=== PATIENT | male | born 1965 | race Caucasian/White ===

== ENCOUNTER → 2016-08-18 | Outpatient (CLI) | payer MEDICARE, OTHER ==
[~2016-08-18] MED LIST: ASPIR 8181 MG PO; COUMADIN10 MG PO; DIABETA 5 MG TAB5 MG PO; DILTIAZEM 24HR240 MG PO; GLUCOPHAGE 500500 MG PO; IMDUR ER TAB 3030 MG PO; KEPPRA500 MG PO; KLOR-CON 1010 MEQ PO; LASIX40 MG PO; LIPITOR TAB 2020 MG PO; LISINOPRIL2.5 MG PO; LOPRESSOR 25 MG25 MG PO; MONTELUKAST SOD10 MG PO; NEURONTIN 300300 MG PO; NORVASC 5 MG TAB5 MG PO; PLAVIX 75 MG TA75 MG PO; PRAMIPEXOLE D0.25 MG PO; SYMBICORT 16010.2 GM INH; ZYLOPRIM 100 M100 MG PO
== END ==
LOC: HEART 5 08-11 07:27
DX: I25.119 Atherosclerotic heart disease of native coronary artery with unspecified angina pectoris (principal); R06.02 Shortness of breath; R94.39 Abnormal result of other cardiovascular function study; Z48.812 Encounter for surgical aftercare following surgery on the circulatory system; Z86.73 Personal history of transient ischemic attack (TIA), and cerebral infarction without residual deficits
CPT/HCPCS: 78451; A9505

== ENCOUNTER 2016-08-22 07:06 | Inpatient (IN) | payer MEDICARE, SELFPAY ==
[~2016-08-22] VITALS: Ht 177.8 cm; Wt 108.9 kg
[~2016-08-22 07:06] MED LIST changes: -LIPITOR TAB 2020 MG PO; -LOPRESSOR 25 MG25 MG PO; -MONTELUKAST SOD10 MG PO; -NORVASC 5 MG TAB5 MG PO; -PLAVIX 75 MG TA75 MG PO
[2016-08-22 07:38] LABS: HEMOGLOBIN 15.2 gm/dl (14.0-17.5); RED BLOOD COUNT 4.95 M/UL (4.20-5.50); WHITE BLOOD COUNT 6.6 K/UL (4.5-11.0)
[2016-08-22 08:08] LABS: BUN/CREATININE RATIO 16 (0-10)
[2016-08-22 22:12] LABS: HEMOGLOBIN 14.2 gm/dl (14.0-17.5); RED BLOOD COUNT 4.6 M/UL (4.20-5.50); WHITE BLOOD COUNT 6.5 K/UL (4.5-11.0)
[2016-08-23 03:42] LABS: HEMOGLOBIN 14.6 gm/dl (14.0-17.5); RED BLOOD COUNT 4.76 M/UL (4.20-5.50); WHITE BLOOD COUNT 6.6 K/UL (4.5-11.0)
[2016-08-23 04:03] LABS: BUN/CREATININE RATIO 15 (0-10)
[2016-08-23] MEDS ORDERED: PLAVIX 75 MG TA75 MG PO (12:09)
[2017-01-08] MEDS ORDERED: LIPITOR TAB 2020 MG PO (10:23)
[2017-03-02] MEDS ORDERED: LOPRESSOR 25 MG25 MG PO (08:18)
[2017-03-02] MEDS ORDERED: NORVASC 5 MG TAB5 MG PO (08:48)
[2017-03-02] MEDS ORDERED: MONTELUKAST SOD10 MG PO (08:55)
== END 2016-08-23 11:40 | disposition home or self-care (01) | DRG 247 ==
LOC: CATH 07:06 → ZEROF 07:07 → CATH 08:00 → PROG CARE 18:00 → ZEROF 08-23 11:40 → CATH 08-23 12:54
PROVIDERS: ADMIT Internal Medicine
PROC: 4A023N7 Measurement of Cardiac Sampling and Pressure, Left Heart, Percutaneous Approach (ICD-10-PCS; principal; 2016-08-22)
PROC: 027037Z Dilation of Coronary Artery, One Artery with Four or More Drug-eluting Intraluminal Devices, Percutaneous Approach (ICD-10-PCS; 2016-08-22)
PROC: B2111ZZ Fluoroscopy of Multiple Coronary Arteries using Low Osmolar Contrast (ICD-10-PCS; 2016-08-22)
PROC: 3E0234Z Introduction of Serum, Toxoid and Vaccine into Muscle, Percutaneous Approach (ICD-10-PCS; 2016-08-23)
DX: I25.118 Atherosclerotic heart disease of native coronary artery with other forms of angina pectoris (principal); I10 Essential (primary) hypertension; G47.30 Sleep apnea, unspecified; G40.909 Epilepsy, unspecified, not intractable, without status epilepticus; E11.9 Type 2 diabetes mellitus without complications; I44.0 Atrioventricular block, first degree; Z23 Encounter for immunization; Z95.2 Presence of prosthetic heart valve; Z79.82 Long term (current) use of aspirin; Z79.01 Long term (current) use of anticoagulants; Z79.899 Other long term (current) drug therapy
CPT/HCPCS: 36415; 80048; 80074; 82550; 82553; 82962; 84484; 85025; 85027; 85347; 85610; 85730; 87390; 93005; 94640; 94664; C1725; C1769; C1874; C1887; C1894; C9600; G0008; J0461; J0583; J1644; J2250; J3010; J7030; J7040; J7120; Q2039; Q9963

== ENCOUNTER → 2016-09-12 | Outpatient (CLI) | payer MEDICARE ==
[~2016-09-12] MED LIST changes: +LIPITOR TAB 2020 MG PO; +LOPRESSOR 25 MG25 MG PO; +MONTELUKAST SOD10 MG PO; +NORVASC 5 MG TAB5 MG PO; +PLAVIX 75 MG TA75 MG PO
== END ==
LOC: CARD REHAB 09:26
DX: Z48.812 Encounter for surgical aftercare following surgery on the circulatory system (principal)

== ENCOUNTER → 2016-12-30 | Outpatient (CLI) | payer MEDICARE | LOC: HEART 5 08:30 | DX: R07.9 Chest pain, unspecified (principal); I35.9 Nonrheumatic aortic valve disorder, unspecified; I25.10 Atherosclerotic heart disease of native coronary artery without angina pectoris; I10 Essential (primary) hypertension; R94.39 Abnormal result of other cardiovascular function study | CPT/HCPCS: 78452; A9502 ==

== ENCOUNTER → 2020-08-15 | Outpatient (CLI) | payer MEDICARE, OTHER ==
[~2020-08-15] MED LIST changes: +ALDACTONE25 MG PO; +ATORVASTATIN CA40 MG PO; +BRILINTA90 MG PO; +COUMADIN7.5 MG PO; -DIABETA 5 MG TAB5 MG PO; +ECOTRIN81 MG PO; +GLUCOTROL XL 5 M5 MG PO; +GLUCOTROL10 MG PO; +ISOSORBIDE MONO60 MG PO; +JANTOVEN10 MG PO; +LAMICTAL100 MG PO; +LASIX80 MG PO; +METFORMIN HCL1000 MG PO; +METOPROLOL TART50 MG PO; +NEURONTIN600 MG PO; +NITROSTAT 0.40.4 MG SL; +POTASSIUM99 M1 PO; +PRINIVIL10 MG PO; +SOLARAZE100 GM TP; +SYMBICORT 80-10.2 GM INH; +TRICOR 145 MG145 MG PO; +VOLTAREN ARTHRI20 GM TD; +WARFARIN SODIUM5 MG PO; +ZESTRIL2.5 MG PO; +ZYLOPRIM 300 M300 MG PO
== END ==
LOC: LBRF 20:37
DX: M86.172 Other acute osteomyelitis, left ankle and foot (principal)
CPT/HCPCS: 87070; 87205

== ENCOUNTER → 2020-09-11 | Outpatient (CLI) | payer MEDICARE, OTHER ==
[2020-09-11 11:16] LABS: BUN/CREATININE RATIO 15 (0-10)
== END ==
LOC: LAB 10:09
DX: Z01.812 Encounter for preprocedural laboratory examination (principal); Z79.01 Long term (current) use of anticoagulants
CPT/HCPCS: 36415; 80048; 85610

== ENCOUNTER → 2020-09-27 | Outpatient (CLI) | payer MEDICARE, OTHER | LOC: US 15:00 | DX: M79.605 Pain in left leg (principal) | CPT/HCPCS: 93971 ==

== ENCOUNTER → 2020-10-24 | Outpatient (CLI) | payer MEDICARE, OTHER ==
[2020-10-24 08:37] LABS: HEMOGLOBIN 13.4 gm/dl (14.0-17.5); RED BLOOD COUNT 4.44 M/UL (4.20-5.50); WHITE BLOOD COUNT 4.6 K/UL (4.5-11.0)
[2020-10-24 08:55] LABS: BUN/CREATININE RATIO 16 (0-10)
== END ==
LOC: CATH 10-17 08:00
PROVIDERS: Internal Medicine Cardiovascular Disease
DX: I25.118 Atherosclerotic heart disease of native coronary artery with other forms of angina pectoris (principal); I25.82 Chronic total occlusion of coronary artery; I11.0 Hypertensive heart disease with heart failure; I50.30 Unspecified diastolic (congestive) heart failure; E11.9 Type 2 diabetes mellitus without complications; Z95.5 Presence of coronary angioplasty implant and graft; Z88.8 Allergy status to other drugs, medicaments and biological substances; Z79.82 Long term (current) use of aspirin; Z79.01 Long term (current) use of anticoagulants; Z79.84 Long term (current) use of oral hypoglycemic drugs; Z79.899 Other long term (current) drug therapy
CPT/HCPCS: 36415; 71045; 80048; 82962; 85025; 85610; 99152; C1769; C1894; J1644; J2250; J3010; J7030; Q9967

== ENCOUNTER → 2020-11-22 | Outpatient (CLI) | payer MEDICARE, OTHER ==
[2020-11-22 09:15] LABS: BUN/CREATININE RATIO 18 (0-10)
== END ==
LOC: LAB 08:16
PROVIDERS: Nurse Practitioner
DX: I50.30 Unspecified diastolic (congestive) heart failure (principal); R60.9 Edema, unspecified
CPT/HCPCS: 36415; 80048

== ENCOUNTER → 2022-02-10 | Outpatient (CLI) | payer MEDICARE | LOC: KOH-I 12:14 | DX: M25.511 Pain in right shoulder (principal) | CPT/HCPCS: 73030 ==